=== PATIENT | female | born 1990 | race African-American/Black ===

== ENCOUNTER 2018-12-26 21:14 | Emergency (ER) | payer SELFPAY, OTHER | END 2018-12-27 02:40 | disposition left against medical advice (07) | LOC: JER 21:14 ==

== ENCOUNTER 2020-09-24 04:39 | Day surgery (SDC) | payer OTHER ==
[2020-09-23 11:45] VITALS: BMI 51.7
[2020-09-24 12:06] VITALS: TEMP 97.3
[2020-09-24 13:06] VITALS: BP 121/75; PULSE 69
== END 2020-09-24 13:30 | disposition home or self-care (01) ==
LOC: JASU-ENDO 04:39
PROVIDERS: ATTEND Internal Medicine Gastroenterology
PROC: 0DB78ZX Excision of Stomach, Pylorus, Via Natural or Artificial Opening Endoscopic, Diagnostic (ICD-10-PCS; principal; 2020-09-24 11:30)
DX: Z01.818 Encounter for other preprocedural examination (principal); E66.01 Morbid (severe) obesity due to excess calories; Z68.43 Body mass index [BMI] 50.0-59.9, adult
CPT/HCPCS: 81025; 88305-TC; 88342-TC